=== PATIENT | male | born 1960 | race Caucasian/White ===

== ENCOUNTER 2022-07-25 09:49 | Emergency (ER) | payer OTHER ==
[~2022-07-25] VITALS: Ht 180.3 cm; Wt 127.0 kg
[2022-07-25 09:57] VITALS: BP 132/70
--- NOTE | 2022-07-25 10:18 | NUR ---
62 Y/O MALE BIBA FROM [facility] C/O RIGHT OPEN DIABETIC FOOT ULCER 8X3CM, UNKNOWN AMOUNT OF TIME, CURBER LESS THAN 3 SECONDS. PER PT THIS HAS OCCURED BEFORE AND HE "LOST HIS LEFT FOOT" BECAUSE OF IT. PT NOTED WITH LEFT BKA AND PROSTHESIS. BS AT BEDSIDE 103. NKA PMH: HTN, DM2, HYPOTHYROID, MDD
--- NOTE | 2022-07-25 10:53 | NUR ---
DR DICKINSON AT BEDSIDE
--- NOTE | 2022-07-25 11:48 | NUR ---
DR DICKINSON REQUESTING TO SPEAK WITH FACILITY REGARDING PTS C/O. CONTACTED [facility], STATED THAT HE IS BEING TREATED AT [facility]. [phone]. CONTACTED CLINIC AND TRANSFERRED TO DR DICKINSON.
--- NOTE | 2022-07-25 12:24 | NUR ---
XRAY AT BEDSIDE
--- NOTE | 2022-07-25 16:17 | NUR ---
PER PT SISTER IS COMING TO PICK HIM UP AT 1745[facility], GIVEN SANDWICH AND JUICE
[2022-07-25] MEDS ORDERED: BACITRACIN OINT 500 UNITS/GM PKT TP ONE ×2 (17:39→17:45)
[2022-07-25 17:45] VITALS: BP 159/83
--- NOTE | 2022-07-25 17:45 | NUR ---
Patient discharged with v/s stable. Written and verbal after care instructions ABOUT DM AND FOOT CARE given and explained. Patient verbalized understanding. Ambulatory with steady gait. All questions addressed prior to discharge. Advised to follow up with PMD.
--- NOTE | 2022-07-25 17:50 | NUR ---
PER ER MD, PT INFERIOR R FOOT WOUND DRESSED WITH XEROFORM X 1, NON ADHERENT X 1, AND ELMA WRAP X 1. + CMS AFTER APPLICATION.
== END 2022-07-25 17:45 | disposition home or self-care (01) ==
LOC: MED 09:49
DX: L97.519 Non-pressure chronic ulcer of other part of right foot with unspecified severity (principal); E11.9 Type 2 diabetes mellitus without complications; I10 Essential (primary) hypertension; E03.9 Hypothyroidism, unspecified; Z89.512 Acquired absence of left leg below knee
CPT/HCPCS: 73630; 99283; Q0092

== ENCOUNTER 2022-08-22 12:54 | Inpatient (IN) | payer MEDICAID, OTHER ==
[~2022-08-22] VITALS: Ht 180.3 cm; Wt 130.6 kg
[2022-08-22 13:06] VITALS: BP 104/56
--- NOTE | 2022-08-22 13:14 | NUR ---
PT TAKEN TO BED 4.
[2022-08-22 14:05] LABS: BASOPHILS % (AUTO) 0.9 % (0.0-2.0); EOSINOPHILS # (AUTO) 0.1 K/uL (0-0.4); EOSINOPHILS % (AUTO) 2.2 % (0.0-4.0); HEMATOCRIT 32.7 % (36-52); HEMOGLOBIN 11.3 g/dL (12.0-18.0); LYMPHOCYTES # (AUTO) 1.1 K/uL (2.0-11.5); LYMPHOCYTES % (AUTO) 20.9 % (20.5-51.1); MEAN CORPUSCULAR HEMOGLOBIN 30 pg (27-31); MEAN CORPUSCULAR HGB CONC 35 g/dL (33-37); MEAN CORPUSCULAR VOLUME 86.3 fL (80-94); MONOCYTES # (AUTO) 0.5 K/uL (0.8-1.0); MONOCYTES % (AUTO) 10.1 % (1.7-9.3); NEUTROPHILS # (AUTO) 3.3 K/uL (1.8-7.7); NEUTROPHILS % (AUTO) 65.9 % (42.2-75.2); PLATELET COUNT (AUTO) 201 K/uL (140-450); RED BLOOD CELL COUNT(AUTO) 3.79 MIL/uL (4.20-6.10); RED CELL DISTRIBUTION WIDTH 16.1 % (11.6-13.7)
[2022-08-22 14:39] LABS: ALBUMIN 2.6 g/dL (3.4-5.0); ANION GAP 12.4 (8-16); CARBON DIOXIDE 25.4 mmol/L (21-32); POTASSIUM 5.8 mmol/L (3.5-5.1); TOTAL BILIRUBIN 0.2 mg/dL (0.0-1.0)
[2022-08-22 14:42] LABS: CREATININE 4.1 mg/dL (0.6-1.3)
[2022-08-22] MEDS ORDERED: ONDANSETRON 4 MG/2 ML VIAL IVP ONE (15:25)
[2022-08-22] MEDS ORDERED: FUROSEMIDE 40 MG/4 ML VIAL IVP SCH (15:30)
[2022-08-22] MEDS: CALCIUM GLUC 1 GM/50 mL NS BAG 50 ML IV ONE ×2 (15:49→17:35)
--- NOTE | 2022-08-22 15:59 | NUR ---
non adherent applied to r foot
[2022-08-22] MEDS: INSULIN REGULAR, HUMAN 100 UNIT/ML VIAL SUBQ ONE ×2 (16:08→17:35)
[2022-08-22] MEDS: DEXTROSE 50% 50 ML SYR IVP ONE ×2 (16:10→17:35)
[2022-08-22 16:12] LABS: PROTHROMBIN TIME 10.3 secs (10.8-13.4)
[2022-08-22 16:17] LABS: MAGNESIUM 2.2 mg/dL (1.8-2.4); PHOSPHORUS 4.6 mg/dL (2.5-4.9)
--- NOTE | 2022-08-22 17:04 | NUR ---
PT NAUSEOUS AND THROWING UP. DR MONIQUE NOTIFIED. RECEIVED ORDER OF ZOFRAN 4MG ZOFRAN ODT ONCE NOW AND ZOFRAN IVPUSH 4MG Q6H PRN
[2022-08-22] MEDS ORDERED: ONDANSETRON 4 MG/2 ML VIAL IVP PRN (17:10)
[2022-08-22] MEDS ORDERED: ONDANSETRON 4 MG ODT ONE (17:10)
[2022-08-22] MEDS ORDERED: ONDANSETRON 4 MG ODT PO SCH (17:10)
[2022-08-22] MEDS ORDERED: DOCUSATE SODIUM 100 MG GELCAP PO PRN (17:45)
[2022-08-22] MEDS ORDERED: HYDROcodone/APAP 7.5/325 MG 1 TAB PO PRN (17:45)
[2022-08-22] MEDS ORDERED: guaiFENesin DM 200/20 MG-10 ML 10 ML UDC PO PRN (17:45)
[2022-08-22] MEDS ORDERED: ZOLPIDEM 5 MG TAB PO PRN (17:45)
[2022-08-22] MEDS ORDERED: POTASSIUM CHLORIDE 10 MEQ TABER PO PRN (17:45)
[2022-08-22] MEDS ORDERED: MORPHINE SULFATE 2 MG/ML SYR IVP PRN (17:45)
[2022-08-22] MEDS ORDERED: DEXTROSE 50% 50 ML SYR IVP PRN (17:50)
[2022-08-22] MEDS ORDERED: SODIUM ZIRCONIUM CYCLOSILICATE 10 GM POWD.PACK PO SCH (18:00)
[2022-08-22] MEDS: DEXT 5% /NACL 0.9% 1,000 ML IV SCH (18:26)
[2022-08-22] MEDS: ACETAMINOPHEN 325 MG TAB PO PRN (18:29)
[2022-08-22 18:32] LABS: ANION GAP 13.2 (8-16); CARBON DIOXIDE 26.4 mmol/L (21-32); POTASSIUM 5.6 mmol/L (3.5-5.1)
[2022-08-22 18:33] LABS: CREATININE 4.3 mg/dL (0.6-1.3)
[2022-08-22] MEDS ORDERED: METOCLOPRAMIDE 10 MG/2 ML INJ VIAL IVP PRN (18:40)
--- NOTE | 2022-08-22 20:30 | NUR ---
PT TX TO MST AT THIS TIME
--- NOTE | 2022-08-22 20:44 | NUR ---
report given to Abby BURCH from tele unit. pt currently a/o x4 , gcs 15. IV sites patent.
[2022-08-23] VITALS: BP 142/90
[2022-08-23 05:58] LABS: APPEARANCE,URINE CLEAR (CLEAR); BILIRUBIN,URINE NEGATIVE (NEGATIVE); BLOOD, URINE NEGATIVE (NEGATIVE); COLOR,URINE YELLOW (YELLOW); LEUKOCYTE ESTERASE ,URINE NEGATIVE (NEGATIVE); NITRITE, URINE NEGATIVE (NEGATIVE); UGLUCOSE TRACE (NEGATIVE)
[2022-08-23 06:20] LABS: BARBITURATE, URINE NEGATIVE ng/ml (NEG <=200); BENZODIAZEPINE, URINE NEGATIVE ng/mL (NEG <=200); CANNABINOID, URINE NEGATIVE ng/mL (NEG <=50); COCAINE, URINE NEGATIVE ng/mL (NEG <=300); OPIATE, URINE NEGATIVE ng/mL (NEG <=2000); PHENCYCLIDINE SCREEN,URINE NEGATIVE ng/mL (NEG <=25)
[2022-08-23 06:23] LABS: RBC,URINE 0-5 /HPF (0-5); WBC,URINE 0-5 /HPF (0-5)
[2022-08-23 06:24] LABS: HYALINE CASTS, URINE 0-1 /LPF (None Seen)
[2022-08-23 07:23] LABS: BASOPHILS % (AUTO) 0.2 % (0.0-2.0); EOSINOPHILS # (AUTO) 0.2 K/uL (0-0.4); EOSINOPHILS % (AUTO) 3.9 % (0.0-4.0); HEMATOCRIT 30.3 % (36-52); HEMOGLOBIN 10.5 g/dL (12.0-18.0); LYMPHOCYTES % (AUTO) 25.3 % (20.5-51.1); MEAN CORPUSCULAR HEMOGLOBIN 30 pg (27-31); MEAN CORPUSCULAR HGB CONC 35 g/dL (33-37); MEAN CORPUSCULAR VOLUME 86.5 fL (80-94); MONOCYTES # (AUTO) 0.4 K/uL (0.8-1.0); MONOCYTES % (AUTO) 9.5 % (1.7-9.3); NEUTROPHILS # (AUTO) 2.4 K/uL (1.8-7.7); NEUTROPHILS % (AUTO) 61.1 % (42.2-75.2); PLATELET COUNT (AUTO) 177 K/uL (140-450); RED CELL DISTRIBUTION WIDTH 16.1 % (11.6-13.7); WHITE BLOOD COUNT (AUTO) 3.9 K/uL (4.8-10.8)
[2022-08-23] MEDS: BLOOD GLUCOSE MONITORING 1 DEV DEV FS SCH ×4 (07:30→21:00)
[2022-08-23 07:44] LABS: ANION GAP 10.5 (8-16); CARBON DIOXIDE 29.4 mmol/L (21-32); POTASSIUM 5.9 mmol/L (3.5-5.1)
[2022-08-23 08:00] VITALS: BP 145/80
[2022-08-23] MEDS ORDERED: [UNRECOGNIZED DRUG - CODE] PO (08:52)
[2022-08-23] MEDS ORDERED: [UNRECOGNIZED DRUG - CODE] PO (08:52)
[2022-08-23] MEDS ORDERED: APIX5TAB PO (08:52)
[2022-08-23] MEDS ORDERED: NIFE60TE79 PO (08:52)
[2022-08-23] MEDS ORDERED: DOCU-3 PO (08:52)
[2022-08-23] MEDS ORDERED: SODI650T2 PO (08:52)
[2022-08-23] MEDS ORDERED: DEXTROSE 50% 50 ML SYR IVP ONE (08:55)
[2022-08-23] MEDS ORDERED: DOCUSATE SODIUM 100 MG GELCAP PO PRN (08:55)
[2022-08-23] MEDS ORDERED: INSULIN REGULAR, HUMAN 100 UNIT/ML VIAL IVP ONE (08:55)
[2022-08-23] MEDS ORDERED: SODIUM BICARBONATE 650 MG TAB PO SCH (09:00)
[2022-08-23] MEDS ORDERED: [UNRECOGNIZED DRUG - OTHER] PO SCH (09:00)
[2022-08-23] MEDS ORDERED: CALCIUM CARBONATE PO SCH (09:00)
[2022-08-23] MEDS ORDERED: VITAMIN D3 PO SCH (09:00)
[2022-08-23] MEDS ORDERED: NIFEDIPINE PO SCH (09:00)
[2022-08-23] MEDS ORDERED: BUMETANIDE PO SCH (09:00)
[2022-08-23] MEDS: CALCIUM CARB/VIT-D 500 MG/200 IU 1 TAB PO SCH (09:30)
[2022-08-23] MEDS: BUMETANIDE 1 MG TAB PO SCH (10:41)
[2022-08-23] MEDS: APIXABAN 2.5 MG TAB PO SCH ×2 (10:44→22:17)
[2022-08-23] MEDS: SODIUM ZIRCONIUM CYCLOSILICATE 10 GM POWD.PACK PO SCH ×5 (10:45→22:17)
[2022-08-23] MEDS: buPROPion 75 MG TAB PO SCH (10:56)
[2022-08-23] MEDS: NIFEdipine 60 MG TABER PO SCH (10:59)
[2022-08-23 12:00] VITALS: BP 132/80
[2022-08-23] MEDS: DEXT 5% /NACL 0.9% 1,000 ML IV SCH (14:05)
[2022-08-23 14:48] LABS: ANION GAP 12.1 (8-16); CARBON DIOXIDE 26.3 mmol/L (21-32); CREATININE 3.5 mg/dL (0.6-1.3); POTASSIUM 4.4 mmol/L (3.5-5.1)
[2022-08-23 16:00] VITALS: BP 123/69
[2022-08-23] MEDS: ACETAMINOPHEN 325 MG TAB PO PRN (19:43)
[2022-08-23 20:36] VITALS: BP 108/72
[2022-08-23] MEDS: INSULIN LISPRO SLIDING SCALE 100 UNITS/ML VIAL SUBQ PRN (22:15)
[2022-08-24] VITALS: BP 110/70
[2022-08-24] MEDS: INSULIN LISPRO SLIDING SCALE 100 UNITS/ML VIAL SUBQ PRN ×4 (00:35→21:02)
[2022-08-24] MEDS: BLOOD GLUCOSE MONITORING 1 DEV DEV FS SCH ×4 (05:41→20:52)
--- NOTE | 2022-08-24 06:52 | NUR ---
PATIENT SABLE THIS SHIFT, GOT HIS MEDICATIONS SCHEDULED, HIS AM INSULIN 74. WILL CONTINUE TO MONITOR HIM.
[2022-08-24 07:02] LABS: BASOPHILS % (AUTO) 0.1 % (0.0-2.0); EOSINOPHILS # (AUTO) 0.2 K/uL (0-0.4); EOSINOPHILS % (AUTO) 3.5 % (0.0-4.0); HEMATOCRIT 33.7 % (36-52); HEMOGLOBIN 11.3 g/dL (12.0-18.0); LYMPHOCYTES # (AUTO) 0.9 K/uL (2.0-11.5); LYMPHOCYTES % (AUTO) 15.8 % (20.5-51.1); MEAN CORPUSCULAR HEMOGLOBIN 29 pg (27-31); MEAN CORPUSCULAR HGB CONC 34 g/dL (33-37); MEAN CORPUSCULAR VOLUME 87.1 fL (80-94); MONOCYTES # (AUTO) 0.4 K/uL (0.8-1.0); MONOCYTES % (AUTO) 7.7 % (1.7-9.3); NEUTROPHILS % (AUTO) 72.9 % (42.2-75.2); PLATELET COUNT (AUTO) 195 K/uL (140-450); RED BLOOD CELL COUNT(AUTO) 3.86 MIL/uL (4.20-6.10); RED CELL DISTRIBUTION WIDTH 15.8 % (11.6-13.7); WHITE BLOOD COUNT (AUTO) 5.5 K/uL (4.8-10.8)
[2022-08-24 07:06] LABS: ANION GAP 12.7 (8-16); CREATININE 3.7 mg/dL (0.6-1.3); POTASSIUM 4.7 mmol/L (3.5-5.1)
[2022-08-24 08:00] VITALS: BP 149/64
--- NOTE | 2022-08-24 08:00 | NUR ---
RECEIVED REPORT FROM PM NURSE, PT IS RESTING IN BED, AAO x4, DENIES PAIN/DISCOMFORT. RESPIRATIONS EVEN AND UL ON RA. DENIES CP/CARDIAC DISCOMFORT. DRESSING TO R FOOT, CDI. L BKA. IV SITE TO LAC, INTACT/PATENT. BED IN LOWEST POSITION, CALL LIGHT IN REACH, SAFETY MEASURES IN PLACE. WILL CONT TO MONITOR.
[2022-08-24] MEDS: buPROPion 75 MG TAB PO SCH (09:10)
[2022-08-24] MEDS: APIXABAN 2.5 MG TAB PO SCH ×2 (09:12→21:08)
[2022-08-24] MEDS: NIFEdipine 60 MG TABER PO SCH (09:13)
[2022-08-24] MEDS: ACETAMINOPHEN 325 MG TAB PO PRN ×2 (09:14→23:51)
[2022-08-24] MEDS: SODIUM ZIRCONIUM CYCLOSILICATE 10 GM POWD.PACK PO SCH (09:22)
[2022-08-24] MEDS: BUMETANIDE 1 MG TAB PO SCH (09:22)
[2022-08-24] MEDS: CALCIUM CARB/VIT-D 500 MG/200 IU 1 TAB PO SCH (09:23)
--- NOTE | 2022-08-24 10:54 | NUR ---
PATIENT HAS BEEN SCREENED AND CATEGORIZED HIGH NUTRITION RISK. PATIENT WILL BE SEEN WITHIN 1-2 DAYS OF ADMISSION. 08/24/22-08/25/[address]
[2022-08-24 12:00] VITALS: BP 152/77
[2022-08-24 16:00] VITALS: BP 145/63
[2022-08-24] MEDS: CLINDAMYCIN 300 MG in DEXTROSE 5% 50 ML IV SCH (17:21)
[2022-08-24] MEDS ORDERED: CLINDAMYCIN IV SCH (18:00)
[2022-08-24] MEDS ORDERED: LACT RING IV SCH (18:00)
[2022-08-24] MEDS ORDERED: DEXT 5% IV SCH (18:00)
--- NOTE | 2022-08-24 18:42 | NUR ---
08/24/2022 RD INITIAL ASSESSMENT COMPLETED. PLEASE REFER TO NUTRITION ASSESSMENT UNDER CARE ACTIVITY FOR ESTIMATED NUTRITIONAL NEEDS. 1.CONTINUE WITH CCHO 45 GRAMS DIET 2.RECOMMEND VITAMIN C AND ZINC (DOSAGE PER MD) TO PROMOTE WOUND HEALING. 3.MONITOR NUTRITION RELATED LABS AND SKIN INTEGRITY 4.RD TO FOLLOW-UP IN 3-5 DAYS PATIENT IS MODERATE RISK. KHANH BACON RD
--- NOTE | 2022-08-24 18:50 | NUR ---
PATIENT IS RESTING IN BED, AAO x4, RESPIRATIONS EVEN AND UL ON RA. DENIES PAIN/DISCOMFORT. NO SIGNIFICANT CHANGES THROUGHOUT SHIFT. DRESSING TO R FOOT CDI. ALL NEEDS MET. BED IN LOWEST POSITION, SIDE RAILS x2, CALL LIGHT IN REACH. WILL CONT TO MONITOR AND ENDORSE TO PM NURSE.
[2022-08-24 20:00] VITALS: BP 137/66
[2022-08-25] VITALS: BP 135/67
[2022-08-25] MEDS ORDERED: CLINDAMYCIN 600 MG/4 ML VIAL ONE (00:32)
[2022-08-25 04:00] VITALS: BP 137/70
[2022-08-25] MEDS: CLINDAMYCIN 300 MG in DEXTROSE 5% 50 ML IV SCH ×4 (05:32→12:35)
[2022-08-25 06:57] LABS: BASOPHILS % (AUTO) 0.2 % (0.0-2.0); EOSINOPHILS # (AUTO) 0.2 K/uL (0-0.4); EOSINOPHILS % (AUTO) 6.4 % (0.0-4.0); HEMOGLOBIN 10.7 g/dL (12.0-18.0); LYMPHOCYTES # (AUTO) 0.9 K/uL (2.0-11.5); LYMPHOCYTES % (AUTO) 25.3 % (20.5-51.1); MEAN CORPUSCULAR HEMOGLOBIN 30 pg (27-31); MEAN CORPUSCULAR HGB CONC 34 g/dL (33-37); MEAN CORPUSCULAR VOLUME 85.9 fL (80-94); MONOCYTES # (AUTO) 0.3 K/uL (0.8-1.0); MONOCYTES % (AUTO) 8.9 % (1.7-9.3); NEUTROPHILS # (AUTO) 2.1 K/uL (1.8-7.7); NEUTROPHILS % (AUTO) 59.2 % (42.2-75.2); PLATELET COUNT (AUTO) 181 K/uL (140-450); RED BLOOD CELL COUNT(AUTO) 3.61 MIL/uL (4.20-6.10); RED CELL DISTRIBUTION WIDTH 15.5 % (11.6-13.7); WHITE BLOOD COUNT (AUTO) 3.5 K/uL (4.8-10.8)
[2022-08-25 07:16] LABS: ANION GAP 12.6 (8-16); CARBON DIOXIDE 25.5 mmol/L (21-32); CREATININE 3.3 mg/dL (0.6-1.3); POTASSIUM 4.1 mmol/L (3.5-5.1)
--- NOTE | 2022-08-25 07:30 | NUR ---
RECEIVED REPORT FROM ASSEMBLY LINE DRIVER NURSE. NO S/S OF DISTRESS. CALL LIGHT IN REACH. ALL SAFETY MEASURES IN PLACE
[2022-08-25] MEDS: BLOOD GLUCOSE MONITORING 1 DEV DEV FS SCH ×2 (08:10→12:14)
[2022-08-25] MEDS: INSULIN LISPRO SLIDING SCALE 100 UNITS/ML VIAL SUBQ PRN ×2 (08:18→13:06)
--- NOTE | 2022-08-25 08:38 | NUR ---
Right foot wound care consult not done. pt. seen and examed by Dr. Melgoza with plan on his note as: Continue IV antibiotics Clindamycin because of his Kidney issue, Pt can switch to oral Clindamycin when discharged Patient's wound will need to be change every other day: Betadine, gauze, yaritza, tape (or large breathable band-aid) Order clarified: Cleanse right foot wound with NS, pat dry, apply moist Betadine 4x4 gauze, cover with dry kerlix roll and secured with tape.every other day and prn if soiling. Last dressing changed by Dr. Melgoza on 08/24/2022.
[2022-08-25] MEDS ORDERED: SODIUM ZIRCONIUM CYCLOSILICATE 10 GM POWD.PACK PO SCH (09:00)
[2022-08-25] MEDS ORDERED: CLIN300C2 PO (09:17)
[2022-08-25] MEDS: buPROPion 75 MG TAB PO SCH (09:28)
[2022-08-25] MEDS: BUMETANIDE 1 MG TAB PO SCH (09:31)
[2022-08-25] MEDS: CALCIUM CARB/VIT-D 500 MG/200 IU 1 TAB PO SCH (09:32)
[2022-08-25] MEDS: APIXABAN 2.5 MG TAB PO SCH (09:32)
[2022-08-25] MEDS: NIFEdipine 60 MG TABER PO SCH (09:33)
[2022-08-25 11:10] VITALS: BP 136/74
--- NOTE | 2022-08-25 11:16 | NUR ---
PROVIDING NEW POST OP BOOT PER PT FOR DISCHARGE
--- NOTE | 2022-08-25 11:18 | NUR ---
P.T. NOTES P.T. EVAL COMPLETED; REFER TO EVAL FOR DETAILS.
--- NOTE | 2022-08-25 12:28 | NUR ---
APPLIED POST OP SHOE FOR PT, MENS M #[phone]. NO GREEN FORM FOUND WITH SHOE. NOTIFIED HOUSE SUP, AND PROVIDED FACE SHEET WITH SHOE STICKER FOR ED.
--- NOTE | 2022-08-25 13:55 | NUR ---
PT DISCHARGED, IV TAKEN OUT. LEFT VIA MOTOR WHEELCHAIR. PT IN STABLE CONDITION. Addendum: 08/25/22 at 1404 by Jeni Whitley RN DISCHARGED HOME. PAPERWORK SIGNED, EDUCATED PT ON DISCHARGE INFORMATION PT VERBALIZED UNDERSTANDING. IV CANULA INTACT. ALL PERSONAL BELONGINGS ARE WITH PT.
[2022-08-26] MEDS ORDERED: GAUZE TP SCH (13:00)
== END 2022-08-25 14:22 | disposition home or self-care (01) | DRG 380 ==
LOC: MED 12:54 → MTU 15:47
PROVIDERS: ADMIT Student in an Organized Health Care Education/Training Program; ATTEND Student in an Organized Health Care Education/Training Program
DX: E11.621 Type 2 diabetes mellitus with foot ulcer (principal); L97.519 Non-pressure chronic ulcer of other part of right foot with unspecified severity; N17.0 Acute kidney failure with tubular necrosis; E43 Unspecified severe protein-calorie malnutrition; E83.51 Hypocalcemia; D63.8 Anemia in other chronic diseases classified elsewhere; E87.1 Hypo-osmolality and hyponatremia; E11.22 Type 2 diabetes mellitus with diabetic chronic kidney disease; N17.9 Acute kidney failure, unspecified; N18.4 Chronic kidney disease, stage 4 (severe); E87.5 Hyperkalemia; I12.9 Hypertensive chronic kidney disease with stage 1 through stage 4 chronic kidney disease, or unspecified chronic kidney disease; Z20.822 Contact with and (suspected) exposure to COVID-19; Z79.01 Long term (current) use of anticoagulants; Z79.899 Other long term (current) drug therapy; Z68.41 Body mass index [BMI] 40.0-44.9, adult
CPT/HCPCS: 36415; 71045; 73630; 76770; 80048; 80053; 80305; 81001; 82150; 82948; 83690; 83735; 83880; 84100; 84484; 85025; 85610; 85730; 87070; 87075; 87081; 87205; 93005; 93971; 96372; 96374; 96375; 97112; 97116; 99285; J0610; J1815; J1940; J2405; J3490; J7060; Q0092; Q0162

== ENCOUNTER 2024-04-05 04:05 | Emergency (ER) | payer MEDICAID, OTHER ==
[~2024-04-05] VITALS: Ht 182.9 cm; Wt 149.7 kg
[~2024-04-05 04:05] MED LIST: APIX5TAB PO; CLIN300C2 PO; DOCU-3 PO; NIFE60TA22 PO; SODI650T2 PO; [UNRECOGNIZED DRUG - CODE] PO; [UNRECOGNIZED DRUG - CODE] PO
[2024-04-05 04:14] VITALS: BP 154/73; PULSE 75; RESP 18; TEMP 101.3; O2SAT 99
[2024-04-05] MEDS: MORPHINE SULFATE 4 MG/ML SYR IVP ONE ×2 (05:35→05:55)
[2024-04-05] MEDS: ONDANSETRON 4 MG/2 ML VIAL IVP ONE ×2 (05:37→19:26)
[2024-04-05] MEDS: ACETAMINOPHEN 325 MG TAB PO ONE (05:37)
[2024-04-05 05:39] LABS: BASOPHILS % (AUTO) 0.2 % (0.0-2.0); EOSINOPHILS % (AUTO) 0.1 % (0.0-4.0); HEMATOCRIT 30.1 % (36-52); HEMOGLOBIN 10.3 g/dL (12.0-18.0); LYMPHOCYTES # (AUTO) 0.6 K/uL (2.0-11.5); LYMPHOCYTES % (AUTO) 3.4 % (20.5-51.1); MEAN CORPUSCULAR HEMOGLOBIN 32 pg (27-31); MEAN CORPUSCULAR HGB CONC 34 g/dL (33-37); MONOCYTES # (AUTO) 0.8 K/uL (0.8-1.0); MONOCYTES % (AUTO) 4.8 % (1.7-9.3); NEUTROPHILS # (AUTO) 14.8 K/uL (1.8-7.7); NEUTROPHILS % (AUTO) 91.5 % (42.2-75.2); PLATELET COUNT (AUTO) 184 K/uL (140-450); RED BLOOD CELL COUNT(AUTO) 3.27 MIL/uL (4.20-6.10); RED CELL DISTRIBUTION WIDTH 14.1 % (11.6-13.7); WHITE BLOOD COUNT (AUTO) 16.1 K/uL (4.8-10.8)
[2024-04-05] MEDS: NACL 0.9% 1,000 ML IV SCH (05:41)
[2024-04-05] MEDS ORDERED: VANCOMYCIN PER PHARMACY MC PRN (06:15)
[2024-04-05 06:24] LABS: ANION GAP 14.5 (8-16); CALCIUM 8.3 mg/dL (8.5-10.1); CARBON DIOXIDE 22.5 mmol/L (21-32)
[2024-04-05 06:26] LABS: CREATININE 5.4 mg/dL (0.6-1.3); INR 1.05 (0.8-1.2)
[2024-04-05] MEDS ORDERED: CEFEPIME 2,000 MG VIAL IV ONE (06:39)
[2024-04-05 06:44] LABS: ALANINE AMINOTRANSFERASE 18 U/L (12-78); ALBUMIN 2.3 g/dL (3.4-5.0); ALKALINE PHOSPHATASE 74 U/L (50-136); ASPARTATE AMINOTRANSFERASE 16 U/L (15-37); BILIRUBIN,DIRECT 0.1 mg/dL (0.0-0.3); CREATINE KINASE, TOTAL 112 U/L (39-308); TOTAL BILIRUBIN 0.5 mg/dL (0.0-1.0); TOTAL PROTEIN, SERUM 6.1 g/dL (6.4-8.2)
[2024-04-05 06:50] LABS: LACTIC ACID 0.8 mmol/L (0.4-2.0)
[2024-04-05] MEDS: CEFEPIME 2,000 MG in DEXTROSE 5% 100 ML IV ONE (06:59)
[2024-04-05] MEDS: HYDROmorphone PFS 2 MG/ML SYR IVP ONE ×4 (07:10→19:31)
[2024-04-05] MEDS ORDERED: VANCOMYCIN 1,000 MG VIAL ONE (08:53)
[2024-04-05] MEDS: VANCOMYCIN 1GM/DEXT 5% PREMIX 200 ML IV ONE (08:55)
[2024-04-05 09:34] LABS: APPEARANCE,URINE CLEAR (CLEAR); BILIRUBIN,URINE NEGATIVE (NEGATIVE); BLOOD, URINE 1+ (NEGATIVE); COLOR,URINE YELLOW (YELLOW); LEUKOCYTE ESTERASE ,URINE NEGATIVE (NEGATIVE); NITRITE, URINE NEGATIVE (NEGATIVE); PROTEIN,URINE 3+ (NEGATIVE); UGLUCOSE 2+ (NEGATIVE); UROBILINOGEN,URINE 0.2 EU/dL (0.2 - 1)
[2024-04-05 10:09] LABS: BACTERIA,URINE 0-2 /HPF (None Seen); RBC,URINE 11-20 (MOD) /HPF (0-5); SQUAMOUS EPITHELIAL CELL,UR 4-10 (MOD) /LPF (0-3 (FEW)); WBC,URINE 0-5 /HPF (0-5)
[2024-04-05 23:09] VITALS: BP 132/57; PULSE 68; RESP 28; TEMP 98.8; O2SAT 96
== END 2024-04-05 23:09 | disposition short-term general hospital (02) ==
LOC: MED 04:05
DX: A41.9 Sepsis, unspecified organism (principal); Z20.822 Contact with and (suspected) exposure to COVID-19; M25.552 Pain in left hip; E11.9 Type 2 diabetes mellitus without complications; J44.9 Chronic obstructive pulmonary disease, unspecified; I10 Essential (primary) hypertension; N28.9 Disorder of kidney and ureter, unspecified; E03.9 Hypothyroidism, unspecified; Z79.899 Other long term (current) drug therapy; Z79.4 Long term (current) use of insulin
CPT/HCPCS: 36415; 71045; 73502; 73700; 74176; 76881; 80048; 80076; 81001; 82550; 83605; 84484; 85025; 85610; 85651; 85730; 86140; 87040; 87426; 93005; 96361; 96365; 96367; 96375; 96376; 99291; J0692; J1170; J2270; J2405; J3370; J7030; Q0092; 87186

== ENCOUNTER 2024-08-04 12:57 | Inpatient (IN) | payer MEDICAID, OTHER ==
[~2024-08-04] VITALS: Ht 180.3 cm; Wt 124.1 kg
[2024-08-04 13:06] VITALS: BP 98/62; PULSE 112; RESP 18; TEMP 97.8; O2SAT 94
[2024-08-04 13:31] LABS: BASOPHILS % (AUTO) 0.3 % (0.0-2.0); EOSINOPHILS % (AUTO) 0.2 % (0.0-4.0); HEMATOCRIT 35.9 % (36-52); HEMOGLOBIN 11.4 g/dL (12.0-18.0); LYMPHOCYTES # (AUTO) 0.5 K/uL (2.0-11.5); LYMPHOCYTES % (AUTO) 4.5 % (20.5-51.1); MEAN CORPUSCULAR HEMOGLOBIN 27 pg (27-31); MEAN CORPUSCULAR HGB CONC 32 g/dL (33-37); MEAN CORPUSCULAR VOLUME 86.2 fL (80-94); MONOCYTES # (AUTO) 0.7 K/uL (0.8-1.0); MONOCYTES % (AUTO) 7.1 % (1.7-9.3); NEUTROPHILS # (AUTO) 9.1 K/uL (1.8-7.7); NEUTROPHILS % (AUTO) 87.9 % (42.2-75.2); PLATELET COUNT (AUTO) 243 K/uL (140-450); RED BLOOD CELL COUNT(AUTO) 4.16 MIL/uL (4.20-6.10); WHITE BLOOD COUNT (AUTO) 10.4 K/uL (4.8-10.8)
[2024-08-04 13:44] LABS: ANION GAP 16.5 (8-16); CARBON DIOXIDE 26.5 mmol/L (21-32)
[2024-08-04 13:48] LABS: CREATININE 5.1 mg/dL (0.6-1.3)
[2024-08-04 13:55] LABS: LACTIC ACID 1.9 mmol/L (0.4-2.0)
[2024-08-04] MEDS ORDERED: cefTRIAXone 1,000 MG VIAL ONE (14:01)
[2024-08-04] MEDS: cefTRIAXone 1,000 MG in DEXT 5% MINI-BAG PLUS 50 ML IV ONE (14:08)
[2024-08-04 14:09] LABS: FLU A ANTIGEN negative (NEGATIVE); FLU B ANTIGEN NEGATIVE (NEGATIVE)
[2024-08-04] MEDS: NACL 0.9% 1,000 ML IV SCH (14:34)
[2024-08-04] MEDS ORDERED: ACETAMINOPHEN 325 MG TAB PO PRN (15:35)
[2024-08-04] MEDS ORDERED: ONDANSETRON 4 MG/2 ML VIAL IVP PRN (15:35)
[2024-08-04] MEDS ORDERED: DEXTROSE 50% 50 ML SYR IVP PRN (15:35)
[2024-08-04] MEDS: BLOOD GLUCOSE MONITORING 1 DEV DEV FS SCH (17:09)
[2024-08-04] MEDS: INSULIN LISPRO SLIDING SCALE 100 UNITS/ML VIAL SUBQ PRN (17:10)
[2024-08-04] MEDS: MIDODRINE 5 MG TAB PO SCH (18:55)
[2024-08-04 18:57] VITALS: BP 103/45; PULSE 83; RESP 17; TEMP 97.5; O2SAT 95
[2024-08-04 19:00] VITALS: PULSE 79; RESP 18; O2SAT 93
[2024-08-04 20:00] VITALS: PULSE 78
[2024-08-05] VITALS (11 sets, daily range): BP systolic 92–136; BP diastolic 46–59; PULSE 68–86; RESP 18–20; TEMP 96.1–98.1; O2SAT 92–99
[2024-08-05 07:42] LABS: BASOPHILS % (AUTO) 0.3 % (0.0-2.0); EOSINOPHILS # (AUTO) 0.1 K/uL (0-0.4); EOSINOPHILS % (AUTO) 1.3 % (0.0-4.0); HEMATOCRIT 31.1 % (36-52); HEMOGLOBIN 10.1 g/dL (12.0-18.0); LYMPHOCYTES # (AUTO) 0.6 K/uL (2.0-11.5); LYMPHOCYTES % (AUTO) 7.6 % (20.5-51.1); MEAN CORPUSCULAR HEMOGLOBIN 28 pg (27-31); MEAN CORPUSCULAR HGB CONC 33 g/dL (33-37); MEAN CORPUSCULAR VOLUME 85.7 fL (80-94); MONOCYTES # (AUTO) 0.6 K/uL (0.8-1.0); MONOCYTES % (AUTO) 7.3 % (1.7-9.3); NEUTROPHILS % (AUTO) 83.5 % (42.2-75.2); PLATELET COUNT (AUTO) 237 K/uL (140-450); RED BLOOD CELL COUNT(AUTO) 3.62 MIL/uL (4.20-6.10); RED CELL DISTRIBUTION WIDTH 17.6 % (11.6-13.7); WHITE BLOOD COUNT (AUTO) 8.4 K/uL (4.8-10.8)
[2024-08-05 08:13] LABS: ALBUMIN 2.3 g/dL (3.4-5.0); ANION GAP 18.2 (8-16); CALCIUM 8.6 mg/dL (8.5-10.1); CARBON DIOXIDE 23.9 mmol/L (21-32); MAGNESIUM 2.4 mg/dL (1.8-2.4); PHOSPHORUS 6.3 mg/dL (2.5-4.9); POTASSIUM 4.1 mmol/L (3.5-5.1); TOTAL BILIRUBIN 0.6 mg/dL (0.0-1.0); TOTAL PROTEIN, SERUM 6.4 g/dL (6.4-8.2)
[2024-08-05 08:23] LABS: CREATININE 5.5 mg/dL (0.6-1.3)
[2024-08-05] MEDS: DOCUSATE SODIUM 100 MG GELCAP PO SCH (09:33)
[2024-08-05] MEDS: MIDODRINE 5 MG TAB PO SCH ×2 (13:00→17:25)
[2024-08-05] MEDS: MIDODRINE 5 MG TAB ONE (18:56)
[2024-08-06] VITALS (7 sets, daily range): BP systolic 105–142; BP diastolic 59–76; PULSE 73–111; RESP 17–22; TEMP 97–98.2; O2SAT 92–98
[2024-08-06 06:51] LABS: BASOPHILS % (AUTO) 0.6 % (0.0-2.0); EOSINOPHILS # (AUTO) 0.2 K/uL (0-0.4); EOSINOPHILS % (AUTO) 2.9 % (0.0-4.0); HEMATOCRIT 32.6 % (36-52); HEMOGLOBIN 10.4 g/dL (12.0-18.0); LYMPHOCYTES # (AUTO) 0.5 K/uL (2.0-11.5); LYMPHOCYTES % (AUTO) 6.4 % (20.5-51.1); MEAN CORPUSCULAR HEMOGLOBIN 28 pg (27-31); MEAN CORPUSCULAR HGB CONC 32 g/dL (33-37); MEAN CORPUSCULAR VOLUME 86.6 fL (80-94); MONOCYTES # (AUTO) 0.9 K/uL (0.8-1.0); NEUTROPHILS # (AUTO) 6.2 K/uL (1.8-7.7); NEUTROPHILS % (AUTO) 79.1 % (42.2-75.2); PLATELET COUNT (AUTO) 256 K/uL (140-450); RED BLOOD CELL COUNT(AUTO) 3.77 MIL/uL (4.20-6.10); RED CELL DISTRIBUTION WIDTH 18.2 % (11.6-13.7); WHITE BLOOD COUNT (AUTO) 7.8 K/uL (4.8-10.8)
[2024-08-06 07:09] LABS: ALBUMIN 2.3 g/dL (3.4-5.0); ANION GAP 15.5 (8-16); CALCIUM 8.9 mg/dL (8.5-10.1); CARBON DIOXIDE 26.4 mmol/L (21-32); POTASSIUM 3.9 mmol/L (3.5-5.1); TOTAL BILIRUBIN 0.6 mg/dL (0.0-1.0); TOTAL PROTEIN, SERUM 6.6 g/dL (6.4-8.2)
[2024-08-06 07:14] LABS: CREATININE 4.5 mg/dL (0.6-1.3)
[2024-08-06] MEDS: ZOLPIDEM 5 MG TAB PO PRN (20:31)
[2024-08-07] VITALS (14 sets, daily range): BP systolic 100–144; BP diastolic 66–80; PULSE 64–99; RESP 18–22; TEMP 97.2–98.3; O2SAT 95–98
[2024-08-07 06:49] LABS: BASOPHILS % (AUTO) 0.7 % (0.0-2.0); EOSINOPHILS # (AUTO) 0.3 K/uL (0-0.4); EOSINOPHILS % (AUTO) 5.4 % (0.0-4.0); HEMATOCRIT 32.6 % (36-52); HEMOGLOBIN 10.3 g/dL (12.0-18.0); LYMPHOCYTES # (AUTO) 0.8 K/uL (2.0-11.5); MEAN CORPUSCULAR HEMOGLOBIN 27 pg (27-31); MEAN CORPUSCULAR HGB CONC 32 g/dL (33-37); MEAN CORPUSCULAR VOLUME 86.4 fL (80-94); MONOCYTES # (AUTO) 0.9 K/uL (0.8-1.0); MONOCYTES % (AUTO) 14.7 % (1.7-9.3); NEUTROPHILS # (AUTO) 4.2 K/uL (1.8-7.7); NEUTROPHILS % (AUTO) 67.2 % (42.2-75.2); PLATELET COUNT (AUTO) 259 K/uL (140-450); RED BLOOD CELL COUNT(AUTO) 3.77 MIL/uL (4.20-6.10); RED CELL DISTRIBUTION WIDTH 18.3 % (11.6-13.7); WHITE BLOOD COUNT (AUTO) 6.3 K/uL (4.8-10.8)
[2024-08-07 07:22] LABS: ALBUMIN 2.3 g/dL (3.4-5.0); ANION GAP 13.9 (8-16); CALCIUM 8.8 mg/dL (8.5-10.1); CARBON DIOXIDE 27.9 mmol/L (21-32); POTASSIUM 3.8 mmol/L (3.5-5.1); TOTAL BILIRUBIN 0.5 mg/dL (0.0-1.0); TOTAL PROTEIN, SERUM 6.8 g/dL (6.4-8.2)
[2024-08-07 07:29] LABS: CREATININE 4.1 mg/dL (0.6-1.3)
[2024-08-07] MEDS: POTASSIUM CHL 20 MEQ/D5-1/2NS 0 ML IV ONE (22:54)
[2024-08-08] VITALS (9 sets, daily range): BP systolic 127–146; BP diastolic 66–73; PULSE 70–86; RESP 17–18; TEMP 96.9–98.7; O2SAT 93–97
[2024-08-08 06:51] LABS: BASOPHILS # (AUTO) 0.1 K/uL (0.00-0.22); BASOPHILS % (AUTO) 0.8 % (0.0-2.0); EOSINOPHILS # (AUTO) 0.3 K/uL (0-0.4); EOSINOPHILS % (AUTO) 4.1 % (0.0-4.0); HEMATOCRIT 34.3 % (36-52); HEMOGLOBIN 10.9 g/dL (12.0-18.0); LYMPHOCYTES # (AUTO) 0.5 K/uL (2.0-11.5); LYMPHOCYTES % (AUTO) 7.1 % (20.5-51.1); MEAN CORPUSCULAR HEMOGLOBIN 27 pg (27-31); MEAN CORPUSCULAR HGB CONC 32 g/dL (33-37); MEAN CORPUSCULAR VOLUME 86.1 fL (80-94); MONOCYTES # (AUTO) 0.6 K/uL (0.8-1.0); MONOCYTES % (AUTO) 7.6 % (1.7-9.3); NEUTROPHILS % (AUTO) 80.4 % (42.2-75.2); PLATELET COUNT (AUTO) 262 K/uL (140-450); RED BLOOD CELL COUNT(AUTO) 3.98 MIL/uL (4.20-6.10); WHITE BLOOD COUNT (AUTO) 7.5 K/uL (4.8-10.8)
[2024-08-08 07:26] LABS: ALBUMIN 2.4 g/dL (3.4-5.0); ANION GAP 18.1 (8-16); CARBON DIOXIDE 26.2 mmol/L (21-32); POTASSIUM 4.3 mmol/L (3.5-5.1); TOTAL BILIRUBIN 0.6 mg/dL (0.0-1.0); TOTAL PROTEIN, SERUM 6.9 g/dL (6.4-8.2)
[2024-08-08 07:34] LABS: CREATININE 5.1 mg/dL (0.6-1.3)
[2024-08-08] MEDS: INSULIN LANTUS 100 UNITS/ML 10 ML VIAL SUBQ SCH (10:38)
[2024-08-09] VITALS (9 sets, daily range): BP systolic 135–140; BP diastolic 57–79; PULSE 78–87; RESP 18; TEMP 97.3–98.1; O2SAT 93–98
[2024-08-09 06:51] LABS: BASOPHILS % (AUTO) 0.6 % (0.0-2.0); EOSINOPHILS # (AUTO) 0.3 K/uL (0-0.4); EOSINOPHILS % (AUTO) 5.4 % (0.0-4.0); HEMATOCRIT 32.2 % (36-52); HEMOGLOBIN 10.4 g/dL (12.0-18.0); LYMPHOCYTES # (AUTO) 0.5 K/uL (2.0-11.5); LYMPHOCYTES % (AUTO) 7.4 % (20.5-51.1); MEAN CORPUSCULAR HEMOGLOBIN 27 pg (27-31); MEAN CORPUSCULAR HGB CONC 32 g/dL (33-37); MONOCYTES # (AUTO) 0.6 K/uL (0.8-1.0); MONOCYTES % (AUTO) 9.1 % (1.7-9.3); NEUTROPHILS # (AUTO) 4.8 K/uL (1.8-7.7); NEUTROPHILS % (AUTO) 77.5 % (42.2-75.2); PLATELET COUNT (AUTO) 237 K/uL (140-450); RED BLOOD CELL COUNT(AUTO) 3.79 MIL/uL (4.20-6.10); RED CELL DISTRIBUTION WIDTH 17.5 % (11.6-13.7); WHITE BLOOD COUNT (AUTO) 6.2 K/uL (4.8-10.8)
[2024-08-09 06:57] LABS: ALBUMIN 2.3 g/dL (3.4-5.0); ANION GAP 15.8 (8-16); CALCIUM 8.8 mg/dL (8.5-10.1); CARBON DIOXIDE 27.6 mmol/L (21-32); POTASSIUM 4.4 mmol/L (3.5-5.1); TOTAL BILIRUBIN 0.5 mg/dL (0.0-1.0); TOTAL PROTEIN, SERUM 6.7 g/dL (6.4-8.2)
[2024-08-10] VITALS (7 sets, daily range): BP systolic 117–149; BP diastolic 63–76; PULSE 83–85; RESP 18; TEMP 97.5–98.4; O2SAT 93–98
[2024-08-10 07:17] LABS: BASOPHILS % (AUTO) 0.8 % (0.0-2.0); EOSINOPHILS # (AUTO) 0.3 K/uL (0-0.4); EOSINOPHILS % (AUTO) 7.3 % (0.0-4.0); HEMATOCRIT 32.6 % (36-52); HEMOGLOBIN 10.4 g/dL (12.0-18.0); LYMPHOCYTES # (AUTO) 0.4 K/uL (2.0-11.5); LYMPHOCYTES % (AUTO) 10.7 % (20.5-51.1); MEAN CORPUSCULAR HEMOGLOBIN 27 pg (27-31); MEAN CORPUSCULAR HGB CONC 32 g/dL (33-37); MONOCYTES # (AUTO) 0.5 K/uL (0.8-1.0); MONOCYTES % (AUTO) 11.9 % (1.7-9.3); NEUTROPHILS # (AUTO) 2.6 K/uL (1.8-7.7); NEUTROPHILS % (AUTO) 69.3 % (42.2-75.2); PLATELET COUNT (AUTO) 207 K/uL (140-450); RED BLOOD CELL COUNT(AUTO) 3.84 MIL/uL (4.20-6.10); RED CELL DISTRIBUTION WIDTH 17.8 % (11.6-13.7); WHITE BLOOD COUNT (AUTO) 3.8 K/uL (4.8-10.8)
[2024-08-10 07:25] LABS: ALBUMIN 2.3 g/dL (3.4-5.0); ANION GAP 13.5 (8-16); CALCIUM 8.8 mg/dL (8.5-10.1); CARBON DIOXIDE 28.5 mmol/L (21-32); TOTAL BILIRUBIN 0.5 mg/dL (0.0-1.0); TOTAL PROTEIN, SERUM 6.7 g/dL (6.4-8.2)
[2024-08-10 07:38] LABS: CREATININE 5.2 mg/dL (0.6-1.3)
[2024-08-10] MEDS: INSULIN LANTUS 100 UNITS/ML 10 ML VIAL SUBQ SCH (09:07)
[2024-08-10] MEDS ORDERED: FOAM DRESSING TP PRN (13:25)
[2024-08-10] MEDS: FOAM DRESSING TP SCH (15:00)
[2024-08-11 06:45] LABS: BASOPHILS # (AUTO) 0.1 K/uL (0.00-0.22); BASOPHILS % (AUTO) 1.4 % (0.0-2.0); EOSINOPHILS # (AUTO) 0.4 K/uL (0-0.4); EOSINOPHILS % (AUTO) 7.7 % (0.0-4.0); HEMATOCRIT 31.9 % (36-52); HEMOGLOBIN 10.3 g/dL (12.0-18.0); LYMPHOCYTES # (AUTO) 0.5 K/uL (2.0-11.5); LYMPHOCYTES % (AUTO) 11.1 % (20.5-51.1); MEAN CORPUSCULAR HEMOGLOBIN 27 pg (27-31); MEAN CORPUSCULAR HGB CONC 32 g/dL (33-37); MEAN CORPUSCULAR VOLUME 84.6 fL (80-94); MONOCYTES # (AUTO) 0.5 K/uL (0.8-1.0); MONOCYTES % (AUTO) 10.4 % (1.7-9.3); NEUTROPHILS # (AUTO) 3.3 K/uL (1.8-7.7); NEUTROPHILS % (AUTO) 69.4 % (42.2-75.2); PLATELET COUNT (AUTO) 188 K/uL (140-450); RED BLOOD CELL COUNT(AUTO) 3.77 MIL/uL (4.20-6.10); RED CELL DISTRIBUTION WIDTH 17.6 % (11.6-13.7); WHITE BLOOD COUNT (AUTO) 4.8 K/uL (4.8-10.8)
[2024-08-11 07:18] LABS: ALBUMIN 2.4 g/dL (3.4-5.0); ANION GAP 15.6 (8-16); CALCIUM 8.7 mg/dL (8.5-10.1); CARBON DIOXIDE 26.2 mmol/L (21-32); POTASSIUM 3.8 mmol/L (3.5-5.1); TOTAL BILIRUBIN 0.5 mg/dL (0.0-1.0); TOTAL PROTEIN, SERUM 6.6 g/dL (6.4-8.2)
[2024-08-11 07:23] LABS: CREATININE 6.3 mg/dL (0.6-1.3)
[2024-08-11 07:49] VITALS: O2SAT 96
[2024-08-11 08:00] VITALS: BP 154/87; PULSE 98; RESP 18; TEMP 97.1; O2SAT 93; O2SAT 94
[2024-08-11 16:00] VITALS: BP 159/95; PULSE 97; RESP 18; TEMP 97.2; O2SAT 97
[2024-08-11 20:02] VITALS: PULSE 80
[2024-08-11 20:03] VITALS: RESP 18; O2SAT 97
[2024-08-11 20:06] VITALS: TEMP 97.6
[2024-08-12 00:43] VITALS: BP 140/80; PULSE 80; RESP 18; TEMP 97.2; O2SAT 97
[2024-08-12 05:12] VITALS: PULSE 83; RESP 19; O2SAT 3; O2SAT 97
[2024-08-12 07:55] VITALS: O2SAT 95
[2024-08-12 08:00] VITALS: BP 140/83; PULSE 84; RESP 18; TEMP 98.3; O2SAT 94; O2SAT 96; O2SAT 98
[2024-08-12 10:07] LABS: EOSINOPHILS # (AUTO) 0.4 K/uL (0-0.4); HEMOGLOBIN 9.7 g/dL (12.0-18.0); LYMPHOCYTES # (AUTO) 0.4 K/uL (2.0-11.5); MONOCYTES # (AUTO) 0.5 K/uL (0.8-1.0)
[2024-08-12 10:36] LABS: ALBUMIN 2.4 g/dL (3.4-5.0); ANION GAP 8.1 (8-16); CALCIUM 8.8 mg/dL (8.5-10.1); CARBON DIOXIDE 30.9 mmol/L (21-32); TOTAL BILIRUBIN 0.5 mg/dL (0.0-1.0); TOTAL PROTEIN, SERUM 6.4 g/dL (6.4-8.2)
[2024-08-12 10:44] LABS: CREATININE 5.1 mg/dL (0.6-1.3)
[2024-08-12 10:49] LABS: BASOPHILS % (AUTO) 1.1 % (0.0-2.0); EOSINOPHILS % (AUTO) 10.1 % (0.0-4.0); HEMATOCRIT 29.9 % (36-52); LYMPHOCYTES % (AUTO) 9.4 % (20.5-51.1); MEAN CORPUSCULAR HEMOGLOBIN 28 pg (27-31); MEAN CORPUSCULAR HGB CONC 33 g/dL (33-37); MEAN CORPUSCULAR VOLUME 84.3 fL (80-94); MONOCYTES % (AUTO) 11.6 % (1.7-9.3); NEUTROPHILS # (AUTO) 2.7 K/uL (1.8-7.7); NEUTROPHILS % (AUTO) 67.8 % (42.2-75.2); PLATELET COUNT (AUTO) 198 K/uL (140-450); RED BLOOD CELL COUNT(AUTO) 3.55 MIL/uL (4.20-6.10); RED CELL DISTRIBUTION WIDTH 17.6 % (11.6-13.7)
== END 2024-08-12 18:25 | disposition home health service (06) | DRG 205 ==
LOC: MED 12:57 → MTU 15:34
PROVIDERS: ADMIT Student in an Organized Health Care Education/Training Program; ATTEND Student in an Organized Health Care Education/Training Program
PROC: 5A1D70Z Performance of Urinary Filtration, Intermittent, Less than 6 Hours Per Day (ICD-10-PCS; principal; 2024-08-05)
PROC: 5A1D70Z Performance of Urinary Filtration, Intermittent, Less than 6 Hours Per Day (ICD-10-PCS; 2024-08-06)
PROC: 5A1D70Z Performance of Urinary Filtration, Intermittent, Less than 6 Hours Per Day (ICD-10-PCS; 2024-08-09)
PROC: 5A1D70Z Performance of Urinary Filtration, Intermittent, Less than 6 Hours Per Day (ICD-10-PCS; 2024-08-11)
DX: M94.0 Chondrocostal junction syndrome [Tietze] (principal); N18.6 End stage renal disease; I12.0 Hypertensive chronic kidney disease with stage 5 chronic kidney disease or end stage renal disease; J96.10 Chronic respiratory failure, unspecified whether with hypoxia or hypercapnia; E87.1 Hypo-osmolality and hyponatremia; R65.10 Systemic inflammatory response syndrome (SIRS) of non-infectious origin without acute organ dysfunction; I95.3 Hypotension of hemodialysis; E83.39 Other disorders of phosphorus metabolism; J44.9 Chronic obstructive pulmonary disease, unspecified; E03.9 Hypothyroidism, unspecified; E11.65 Type 2 diabetes mellitus with hyperglycemia; E11.22 Type 2 diabetes mellitus with diabetic chronic kidney disease; E11.51 Type 2 diabetes mellitus with diabetic peripheral angiopathy without gangrene; D64.9 Anemia, unspecified; Z20.822 Contact with and (suspected) exposure to COVID-19; Z99.2 Dependence on renal dialysis; Z79.899 Other long term (current) drug therapy
CPT/HCPCS: 36415; 71045; 80048; 80053; 82948; 83605; 83735; 83880; 84100; 84484; 85025; 87040; 90935; 93005; 96365; 97110; 97112; 97530; 99285; J0696; J1644; J1815